=== PATIENT | male | born 1960 | race Two or more races ===

== ENCOUNTER 2021-08-06 07:50 | Outpatient (CLI) | payer OTHER | END 2021-08-06 23:59 | disposition home or self-care (01) | LOC: LAB 07:50 | PROVIDERS: ATTEND Student in an Organized Health Care Education/Training Program | DX: Z01.812 Encounter for preprocedural laboratory examination (principal); Z20.822 Contact with and (suspected) exposure to COVID-19 | CPT/HCPCS: C9803; U0003 ==